=== PATIENT | male | born 1970 | race Caucasian/White ===

== ENCOUNTER 2021-12-15 10:37 | Outpatient (CLI) | payer BC, SELFPAY ==
--- NOTE | ~2021-12-15 | XR_ITS ---
EXAMINATION: XR foot RT min 3V DATE: 12/15/2021 10:54 INDICATION: Right foot pain TECHNIQUE: Dorsoplantar, lateral, and 2 oblique views of the right foot were obtained. COMPARISON: None. FINDINGS: There is no fracture, dislocation, or subluxation. 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 The soft tissues are normal. IMPRESSION: 1. No acute osseous abnormality. Reviewed, dictated and finalized at location A.
== END 2021-12-15 10:38 | disposition home or self-care (01) ==
PROVIDERS: PCP Physician Assistant; Visit Provider Physician Assistant
DX: M79.671 Pain in right foot (principal)
CPT/HCPCS: 73630

== ENCOUNTER 2022-05-06 10:26 | Emergency (ER) | payer BC, SELFPAY ==
[2022-05-06 10:33] VITALS: BP 132/80; PULSE 89; RESP 16; TEMP 36.9; O2SAT 98
--- NOTE | 2022-05-06 11:15 | ED.URI ---
HPI - URI/Sore Throat General Chief Complaint: Upper Respiratory Infection Stated Complaint: Sore Throat/Cough Time Seen by Provider: 05/06/22 11:15 Source: patient, RN notes reviewed and old records reviewed Mode of arrival: ambulatory Limitations: no limitations History of Present Illness HPI Narrative: 51 year old male who presents to [facility] care with complaints of sore throat and cough and some post nasal drainage since yesterday. Patient reports that he called off work today and needs note. Patient also reports that work has requested he has documented covid and flu test before return to work,took home covid test which was negative but will not accept. Patient reports that he has had COVID shots X2 no Booster did have Covid 2 years ago, has not had flu shot. MD elicited complaint: cough, sore throat and other (post nasal drainage) Onset (ago): day(s) (day 2 of symptoms) Pain scale (0-10): 4 Able to tolerate fluids by mouth: Yes Exacerbating factors: swallowing Treatments prior to arrival: none Related Data Home Medications Medication Instructions Recorded Confirmed amlodipine 10 mg tablet 100 mg PO DAILY 05/06/22 05/06/22 atenolol 50 mg tablet 50 mg PO DAILY 05/06/22 05/06/22 losartan 100 mg tablet 100 mg PO DAILY 05/06/22 05/06/22 metformin 500 mg tablet 500 mg PO BID 05/06/22 05/06/22 sitagliptin phosphate 100 mg 100 mg PO DAILY 05/06/22 05/06/22 tablet (Januvia) Allergies Allergy/AdvReac Type Severity Reaction Status Date / Time No Known Allergies Allergy Verified 05/06/22 10:53 Review of Systems Review of Systems: CONSTITUTIONAL: Denies malaise, chills, sweats, or known fever. EYES: Denies visual changes, redness, or discharge. ENT: Reports rhinorrhea, congestion, no sinus pain, no otalgia positive for sore throat. CARDIOVASCULAR: Denies chest pain, palpitations, or edema. RESPIRATORY: Reports cough.? Denies dyspnea. GASTROINTESTINAL: Denies abdominal pain, nausea, vomiting, diarrhea SKIN: Denies rash or itching. MUSCULOSKELETAL: Denies myalgia. NEUROLOGIC: Denies headache. All systems reviewed & are unremarkable except as noted in HPI and below PMFSH Past Medical History Medical History (Updated 05/08/22 @ 12:07 by Makayla Degroot NP) Diabetes Hypertension Sleep apnea with use of continuous positive airway pressure (CPAP) Social History Social History (Updated 05/08/22 @ 12:16 by Makayla Degroot NP) Smoking status: Never smoker Alcohol intake: current Alcohol use details: social Substance use: never Living arrangements: with family Gender identity (if verbalized by the patient): Male Comments At time of signature, agree with nursing past medical, surgical, social and family history. There is no relevant family history pertinent to the presenting complaint Exam Narrative: GENERAL: Well-appearing, well-nourished, and in no acute distress. HEAD: Normocephalic EYES: PERRLA, conjunctivae clear ENT: Nares clear, turbinates edematous and erythematous, clear discharge. Mucous membranes moist. TM pearly olivares with dull light reflex bilaterally; no tragal tenderness. Oropharynx erythematous without lesions. Tonsils red enlarged and without exudate, no drooling, no hoarseness, no trismus, uvula midline and swollen and red, post nasal drainage noted. NECK: Supple. No lymphadenopathy CHEST: Clear to auscultation, breath sounds equal. No wheezing, rhonchi, rales, or stridor. No respiratory distress, speaks in full sentences.SAO2 98% on room air HEART: Regular rate and rhythm. No murmur heard. SKIN: Warm, dry, no rash. NEURO: Alert and oriented x3. PSYCH: Normal mood and affect Course Course Emergency Course: Patient is aware of diagnosis, understands and agrees to treatment plan.? Anticipatory guidance given.? Patient agrees to follow-up as directed and is aware of reasons to seek care at the emergency department. Portions of this record may have bee
== END 2022-05-06 12:25 | disposition home or self-care (01) ==
PROVIDERS: Emergency Provider Registered Nurse; PCP Physician Assistant
DX: J03.90 Acute tonsillitis, unspecified (principal); Z20.822 Contact with and (suspected) exposure to COVID-19; E11.9 Type 2 diabetes mellitus without complications; I10 Essential (primary) hypertension; G47.30 Sleep apnea, unspecified
CPT/HCPCS: 87081; 87426; 87804; 87880; 99213; C9803; G0463

== ENCOUNTER 2023-03-04 18:44 | Emergency (ER) | payer BC, SELFPAY ==
[2023-03-04 18:50] VITALS: BP 129/80; PULSE 80; RESP 20; TEMP 36.9; O2SAT 96
--- NOTE | 2023-03-04 19:22 | ED.EXTPRO ---
HPI - Extremity Problem General Chief complaint: Extremity Problem,Nontraumatic Stated complaint: right thumb pain/discoloration Source: patient Mode of arrival: ambulatory Limitations: no limitations History of Present Illness HPI Narrative: 52 y/o male presented for c/o right thumb redness, swelling and pain. States pain started about 4 days ago. Noticed redness to the outer aspect of the thumb today. Endorses decreased ROM due to swelling. Denies drainage. Denies injury or overuse. Patient is right hand dominant. Related Data Home Medications Medication Instructions Recorded Confirmed amlodipine 10 mg tablet 100 mg PO DAILY 05/06/22 03/04/23 atenolol 50 mg tablet 50 mg PO DAILY 05/06/22 03/04/23 losartan 100 mg tablet 100 mg PO DAILY 05/06/22 03/04/23 metformin 500 mg tablet 500 mg PO BID 05/06/22 03/04/23 sitagliptin phosphate 100 mg 100 mg PO DAILY 05/06/22 03/04/23 tablet (Januvia) semaglutide 0.25 mg or 0.5 mg (2 mg subcut 03/04/23 mg/3 mL) subcutaneous pen injector (Ozempic) Allergies Allergy/AdvReac Type Severity Reaction Status Date / Time No Known Allergies Allergy Verified 03/04/23 19:00 Review of Systems Review of Systems: CONSTITUTIONAL: Denies body aches, fever, chills EYES: Denies visual changes ENT: Denies rhinorrhea, congestion CARDIOVASCULAR: Denies chest pain, palpitations, or edema. RESPIRATORY: Denies cough or dyspnea. GASTROINTESTINAL: Denies abdominal pain, nausea, vomiting, or diarrhea. SKIN: Denies rash, itching, or wounds. MUSCULOSKELETAL: Reports right thumb pain, swelling Denies back pain, joint pain, or myalgia. NEUROLOGIC: Denies headache, numbness, tingling, or weakness. PSYCH: Denies depression or anxiety. All systems reviewed & are unremarkable except as noted in HPI and below PMFSH Past Medical History Medical History Diabetes Hypertension Sleep apnea with use of continuous positive airway pressure (CPAP) Social History Social History Smoking status: Never smoker Alcohol intake: current Alcohol use details: social Substance use: never Living arrangements: with family Gender identity (if verbalized by the patient): Male Comments At time of signature, I have reviewed and agree with nursing past medical, surgical, social and family history unless otherwise noted. Please see nursing chart for further information. There is no relevant family history pertinent to the presenting complaint Exam Narrative: GENERAL: Well-appearing, and in no acute distress. HEAD: Normocephalic, atraumatic. EYES: PERRLA, conjunctivae clear CHEST: Speaks in full sentences. No respiratory distress. HEART: Regular rate and rhythm. Normal and equal peripheral pulses. EXTREMITIES: Right thumb distal phalanx ulnar aspect with erythema and tenderness c/w paronychia, moderate swelling to thumb when compared to left. No fluctuance or active drainage. Nontender joints. Decreased range of motion of thumb IP joint due to swelling; normal strength and sensation, No ecchymosis, No open wounds, or obvious deformity; alignment normal, pulse palpable and equal bilaterally, skin warm, dry, pink. Capillary refill less than 3 seconds. SKIN: Warm, dry, no rash. NEURO: Alert and oriented x3. PSYCH: Normal mood and affect Course Course Emergency Course: Patient is aware of diagnosis, understands and agrees to treatment plan. Anticipatory guidance given. Patient agrees to follow-up as directed and is aware of reasons to seek care at the emergency department. Portions of this record may have been created with voice recognition software Level of Care: Express Care Visit Vital Signs Vital signs: Vital Signs Temperature 98.4 F 03/04/23 18:50 Pulse Rate 80 03/04/23 18:50 Respiratory Rate 20 03/04/23 18:50 Blood Pressure 129/80 03/04/23 18:50 Pulse Oximet
== END 2023-03-04 19:27 | disposition home or self-care (01) ==
PROVIDERS: Emergency Provider Nurse Practitioner Family; PCP Physician Assistant
DX: L03.011 Cellulitis of right finger (principal); Z79.84 Long term (current) use of oral hypoglycemic drugs; E11.9 Type 2 diabetes mellitus without complications; I10 Essential (primary) hypertension; G47.30 Sleep apnea, unspecified
CPT/HCPCS: 99213; G0463

== ENCOUNTER 2024-03-17 08:57 | Emergency (ER) | payer BC, SELFPAY ==
[2024-03-17 09:03] VITALS: BP 119/75; PULSE 78; RESP 18; TEMP 36.6; O2SAT 97
--- NOTE | 2024-03-17 09:44 | ED.SKABFB ---
HPI - Skin/Abscess/Foreign Bdy General Chief complaint: Skin/Abscess/Foreign Body Stated complaint: Skin Sore/Lips Time Seen by Provider: 03/17/24 09:24 Source: patient and RN notes reviewed Mode of arrival: ambulatory Limitations: no limitations History of Present Illness HPI narrative: Patient presents today complaining of a sore to the left corner of his mouth yesterday morning. Describes the area as hot and numb, and states it feels like a fever blister. States has been growing since yesterday and the area has been moving up to the upper lip as well. Yesterday he applied some Campho-Phenique and some tea tree oil without relief. Related Data Home Medications Medication Instructions Recorded Confirmed amlodipine 10 mg tablet 100 mg PO DAILY 05/06/22 03/17/24 atenolol 50 mg tablet 50 mg PO DAILY 05/06/22 03/17/24 losartan 100 mg tablet 100 mg PO DAILY 05/06/22 03/17/24 metformin 500 mg tablet 500 mg PO BID 05/06/22 03/17/24 sitagliptin phosphate 100 mg 100 mg PO DAILY 05/06/22 03/17/24 tablet (Januvia) semaglutide 0.25 mg or 0.5 mg (2 0.5 mg subcut WEEKLY 03/04/23 03/17/24 mg/3 mL) subcutaneous pen injector (Ozempic) Allergies Allergy/AdvReac Type Severity Reaction Status Date / Time Penicillins Allergy Hives Verified 03/17/24 09:22 Review of Systems Review of Systems: CONSTITUTIONAL: Denies body aches, fever, chills, or sweats. EYES: Denies visual changes, redness, or discharge. ENT: Denies rhinorrhea, congestion, sore throat, or otalgia. CARDIOVASCULAR: Denies chest pain, palpitations, or edema. RESPIRATORY: Denies cough or dyspnea. GASTROINTESTINAL: Denies abdominal pain, nausea, vomiting, or diarrhea. GENITOURINARY: Denies dysuria or hematuria. SKIN: Mouth sore MUSCULOSKELETAL: Denies back pain, joint pain, or myalgia. NEUROLOGIC: Denies headache, numbness, tingling, or weakness. PSYCH: Denies depression or anxiety. [facility] Past Medical History Medical History Diabetes Hypertension Sleep apnea with use of continuous positive airway pressure (CPAP) Social History Social History Smoking status: Never smoker Alcohol intake: current Alcohol use details: social Substance use: never Living arrangements: with family Gender identity (if verbalized by the patient): Male Comments At time of signature, I have reviewed and agree with nursing past medical, surgical, social and family history unless otherwise noted. Please see nursing chart for further information. There is no relevant family history pertinent to the presenting complaint Exam Narrative: GENERAL: Well-appearing, well-nourished, and in no acute distress. HEAD: Normocephalic, atraumatic. EYES: EOMI. No redness or drainage. Conjunctivae normal. ENT: Mucous membranes pink and moist. Erythema and mild edema to the left corner of the mouth with some honey crusting. Tender to palpation. The edema extends to the upper and lower lip NECK: Normal AROM. CHEST: No respiratory distress. EXTREMITIES: Normal range of motion. No edema. SKIN: Warm, dry, no rash. Capillary refill normal. Normal skin turgor. NEURO: No focal deficits. Alert and oriented x3. Gait steady. PSYCH: Normal affect. No signs of depression or anxiety. Course Course Level of Care: Express Care Visit Vital Signs Vital signs: Vital Signs Temperature 98 F 03/17/24 09:03 Pulse Rate 78 03/17/24 09:03 Respiratory Rate 18 03/17/24 09:03 Blood Pressure 119/75 03/17/24 09:03 Pulse Oximetry 97 03/17/24 09:03 Oxygen Delivery Room Air 03/17/24 09:03 Temperature 98 F 03/17/24 09:03 Pulse Rate 78 03/17/24 09:03 Respiratory Rate 18 03/17/24 09:03 Blood Pressure 119/75 03/17/24 09:03 Pulse Oximetry 97 03/17/24 09:03 Oxygen Delivery Room Air 03/17/24 09:03 Reviewed MDM - Skin/Abscess/For
== END 2024-03-17 10:15 | disposition home or self-care (01) ==
PROVIDERS: Emergency Provider Nurse Practitioner; PCP Physician Assistant
DX: L01.00 Impetigo, unspecified (principal); E11.9 Type 2 diabetes mellitus without complications; Z79.84 Long term (current) use of oral hypoglycemic drugs; I10 Essential (primary) hypertension; G47.30 Sleep apnea, unspecified
CPT/HCPCS: 99213; G0463